=== PATIENT | female | born 1955 | race American Indian/Alaskan Native ===

== ENCOUNTER 2020-09-27 08:58 | Emergency (ER) | payer SELFPAY ==
[2020-09-27 09:04] VITALS: BP 181/84
--- NOTE | 2020-09-27 11:34 | Emergency Department Report ---
ED General Adult HPI - General Chief complaint: Extremity Problem,Nontraumatic Stated complaint: BACK AND LEG PAIN Time Seen by Provider: 09/27/20 10:44 Source: patient Mode of arrival: Ambulatory Limitations: No Limitations - History of Present Illness Initial comments: 65-year-old female with a past medical history of hypertension presents to the ER today complaining of lower back pain, bilateral lower leg pain, and a rash to her left lower leg. Patient states that she has had this lower back pain and bilateral leg pain for 5 years. Patient denies any injury when her pain started. She states that over the course of 5 years she has not been able to see a doctor for her symptoms because she cannot afford it and has no insurance. Patient states that her lower leg pain and back pain is worse with certain movements and when she stands on her feet for long period of time. Patient also reports bilateral lower leg swelling for the past 3 months, she states that the swelling in the right leg does improve with elevation, but the swelling in her left leg seems to remain the same despite elevation. She reports a rash to the anterior aspect of her left lower leg which developed about 1 month ago, she states it is pruritic in nature. She denies new lotions, soaps or any new contacts. She has not seen a provider for any of these symptoms since they started. Patient states that she is hoping to get disability because of her pain. She denies any associated chest pain, shortness of breath, lower extremity weakness, numbness or tingling. She denies any saddle anesthesia, abdominal pain or any other associated symptoms. - Related Data Previous Rx's Medication Instructions Recorded Last Taken Type Gentamicin 0.3% Ophth Soln 2 drops OP Q4H #1 bottle 10/02/14 Unknown Rx Acetaminophen [Tylenol] 650 mg PO Q6HR PRN #30 capsule 09/27/20 Unknown Rx methylPREDNISolone [Medrol 4MG 4 mg PO DAILY #1 tab.ds.pk 09/27/20 Unknown Rx DOSEPAK (21 tabs)] Allergies Allergy/AdvReac Type Severity Reaction Status Date / Time No Known Allergies Allergy Unverified 10/02/14 02:26 ED Review of Systems ROS: Stated complaint: BACK AND LEG PAIN Other details as noted in HPI Constitutional: denies: chills, fever ENT: denies: ear pain, throat pain Respiratory: denies: cough, shortness of breath, wheezing Cardiovascular: denies: chest pain, palpitations Gastrointestinal: denies: abdominal pain, nausea, diarrhea Musculoskeletal: back pain, joint swelling, arthralgia Skin: rash, pruritus Neurological: denies: headache, weakness, paresthesias Psychiatric: denies: anxiety, depression Hematological/Lymphatic: denies: easy bleeding, easy bruising ED Past Medical Hx - Past Medical History Previous Medical History?: No - Surgical History Past Surgical History?: No - Social History Smoking Status: Current Every Day Smoker Substance Use Type: Alcohol - Medications Home Medications: Home Medications Medication Instructions Recorded Confirmed Last Taken Type Gentamicin 0.3% Ophth Soln 2 drops OP Q4H #1 bottle 10/02/14 Unknown Rx Acetaminophen [Tylenol] 650 mg PO Q6HR PRN #30 capsule 09/27/20 Unknown Rx methylPREDNISolone [Medrol 4MG 4 mg PO DAILY #1 tab.ds.pk 09/27/20 Unknown Rx DOSEPAK (21 tabs)] ED Physical Exam - General Limitations: No Limitations General appearance: alert, in no apparent distress - Head Head exam: Present: atraumatic, normocephalic, normal inspection - Neck Neck exam: Present: normal inspection - Respiratory Respiratory exam: Present: normal lung sounds bilaterally. Absent: respiratory distress - Cardiovascular Cardiovascular Exam: Present: regular rate, normal rhythm. Absent: systolic murmur, diastolic murmur, rubs, gallop - GI/Abdominal GI/Abdominal exam: Present: soft. Absent: distended, tenderness - Extremities Exam Extremities exam: Present: full ROM, normal capillary refill, other (Patient has no tenderness to palpation along her right knee and the left lower leg. No signs of secondary bacterial infection. She has no calf tenderness. No apparent swelling noted to either legs. She does have any hyerpigmented maculopapular dry flaky rash noted to the anterior aspect of her left proximal lower leg. Dorsalis pedis pulses normal. Strength of bilateral lower extremity normal. Cap refills are normal. Sensation along lower extremities normal.). Absent: tenderness, pedal edema, joint swelling, calf tenderness - Back Exam Back exam: Present: normal inspection, full ROM. Absent: tenderness, muscle spasm, paraspinal tenderness, vertebral tenderness, rash noted - Neurological Exam Neurological exam: Present: alert, oriented X3, CN II-XII intact, normal gait. Absent: motor sensory deficit - Psychiatric Psychiatric exam: Present: normal affect, normal mood - Skin Skin exam: Present: intact ED Course Vital Signs 09/27/20 09:03 Temperature 98.1 F Pulse Rate 87 Respiratory 18 Rate Blood Pressure 181/84 [Right] O2 Sat by Pulse 95 Oximetry ED Medical Decision Making - Medical Decision Making Patient presented to the ER today complaint of low back pain, bilateral lower extremity pain, lower extremity swelling, and a rash to her left lower leg. Patient symptoms are chronic. Patient states that she was hoping to get on disability for her pain so that she does not have to work anymore. Informed patient that we do not file for disability here in the ER. She will need to get established with a primary care doctor to first evaluate his symptoms and may be filed for disability for her. Patient is overall well-appearing, nontoxic, appears well-hydrated and does not appear to be in any acute distress, she is overall neurologically intact, with a normal gait. Work-up, no admission, no consultation or admission is indicated at this time. Patient informed that she will be given referral to a local primary care doctor. She will be given medications to help with her symptoms in the meantime. Patient expressed understanding of instructions and agrees with plan. Patient was stable at time of discharge. Critical care attestation.: If time is entered above; I have spent that time in minutes in the direct care of this critically ill patient, excluding procedure time. ED Disposition Clinical Impression: Chronic low back pain, Lumbar radiculopathy, Peripheral edema, Dermatitis of lower extremity Disposition: [id number] TO HOME OR SELFCARE Is pt being admited?: No Does the pt Need Aspirin: No Condition: Stable Instructions: Leg Edema (ED), Lumbar Radiculopathy (ED), Chronic Back Pain (ED) Additional Instructions: Take the medications prescribed here in the ER as directed. Elevate your leg as often as possible to help with the swelling. It is important that you follow- up with primary care doctor for further evaluation as you may need an MRI of your lower back, he can also give referral to dermatology for the rash to your left lower leg, and he can help you follow-up for your disability. Return to the ER if your symptoms changes or worsens in any way. Prescriptions: methylPREDNISolone [Medrol 4MG DOSEPAK (21 tabs)] 4 mg PO DAILY #1 tab.ds.pk Acetaminophen [Tylenol] 650 mg PO Q6HR PRN #30 capsule PRN Reason: Pain , Severe (7-10) Referrals: GILDA STANLEY MD [Staff Physician] - 3-5 Days Forms: Work/School Release Form(ED) Time of Disposition: 11:35
== END 2020-09-27 11:44 | disposition home or self-care (01) ==
LOC: ED 08:58
DX: M54.16 Radiculopathy, lumbar region (principal); G89.29 Other chronic pain; R60.9 Edema, unspecified; L30.9 Dermatitis, unspecified; F17.200 Nicotine dependence, unspecified, uncomplicated; Z79.899 Other long term (current) drug therapy
CPT/HCPCS: 99281